=== PATIENT | male | born 1955 | race Caucasian/White ===

== ENCOUNTER 2023-04-10 08:37 | Outpatient (CLI) | payer MEDICARE | END 2023-04-10 08:38 | disposition short-term general hospital (02) | LOC: EMS 08:37 | DX: I45.10 Unspecified right bundle-branch block (principal); R94.31 Abnormal electrocardiogram [ECG] [EKG]; R55 Syncope and collapse; R42 Dizziness and giddiness | CPT/HCPCS: A0425; A0427 ==